=== PATIENT | female | born 1995 | race African-American/Black ===

== ENCOUNTER 2022-02-10 17:10 | Emergency (ER) | payer OTHER ==
[~2022-02-10] VITALS: Ht 172.7 cm; Wt 66.0 kg
[2022-02-10 17:27] VITALS: BP 135/92
== END 2022-02-10 19:29 | disposition left against medical advice (07) ==
LOC: ER 17:10
DX: Z53.21 Procedure and treatment not carried out due to patient leaving prior to being seen by health care provider (principal)